=== PATIENT | male | born 1955 | race Caucasian/White ===

== ENCOUNTER 2016-10-14 06:02 | Day surgery (SDC) | payer BC ==
--- NOTE | 2016-10-13 10:57 | HP ---
[facility]ellite [facility] - Chief Complaint Chief Complaint: right knee pain - Past Medical History Allergies/Adverse Reactions: Allergies Allergy/AdvReac Type Severity Reaction Status Date / Time No Known Allergies Allergy Verified 10/06/16 17:39 - Current Medications Current Medications: Medication Instructions Recorded Simvastatin 40 mg PO DAILY 10/06/16 Tamsulosin HCl [Flomax] 0.4 mg PO DAILY 10/06/16 Satellite Physical Exam - Physical Examination General Appearance: Well Nourished, Well Developed, Alert & Oriented x3 ENT: Clear Lung: Normal air movement Heart: Regular rate & rhythm Extremities: Other (right knee- + swelling, + ttp medially, decr rom, nvi xrays show severe medial djd) Neurological: Intact, Alert, Oriented Satellite Impression/Plan - Impression/Plan Impression: right knee medial djd Operative Procedure: right medial jose eduardo ukr Date to be Performed: 10/14/16
[2016-10-14] MEDS ORDERED: CELECOXIB 200 MG CAPSULE PO ONE (06:13)
[2016-10-14] MEDS ORDERED: oxyCODONE HCL 10 MG SUSTAINED ACTING TABLET PO ONE (06:13)
[2016-10-14] MEDS ORDERED: CEFAZOLIN 2 GM in DEXTROSE 5%-WATER - 50 ML IVPB ONE (06:13)
[2016-10-14] MEDS ORDERED: TRANEXAMIC ACID 1000 MG/10 ML VIAL IVPUSH ONE (06:13)
[2016-10-14] MEDS ORDERED: GABAPENTIN 300 MG CAPSULE (FP) PO ONE (06:13)
[2016-10-14] MEDS ORDERED: ROPIVICAINE 0.2%/MORPH PF/KETOROLAC - 51ML DISP.SYRINGE IA ONE ×3 (06:13→09:23)
[2016-10-14] MEDS ORDERED: oxyCODONE HCL 10 MG SUSTAINED ACTING TABLET ONE (06:15)
[2016-10-14] MEDS ORDERED: CELECOXIB 200 MG CAPSULE ONE (06:15)
[2016-10-14] MEDS ORDERED: GABAPENTIN 300 MG CAPSULE (FP) ONE (06:15)
[2016-10-14 06:31] VITALS: BMI 37.4
[2016-10-14] MEDS ORDERED: ROPIVACAINE HCL 0.5% 30ML VIAL ONE (06:45)
[2016-10-14] MEDS ORDERED: DEXAMETHASONE SOD PHOSPHATE/PF 10 MG/ML SDV ONE (06:45)
[2016-10-14] MEDS ORDERED: MIDAZOLAM HCL 2 MG/2 ML SINGLE DOSE VIAL ONE (06:45)
[2016-10-14] MEDS ORDERED: GELATIN, ABSORBABLE 100 EACH SPONGE TP ONE (07:08)
[2016-10-14] MEDS ORDERED: ceFAZolin SODIUM 1 GM VIAL ONE ×2 (07:08→07:37)
[2016-10-14] MEDS ORDERED: THROMBIN (BOVINE) 5,000 UNIT VIAL TP ONE ×2 (07:08→08:40)
[2016-10-14] MEDS ORDERED: PROPOFOL 20 ML ONE ×2 (07:34)
[2016-10-14] MEDS ORDERED: TRANEXAMIC ACID 1000 MG/10 ML VIAL ONE (07:37)
[2016-10-14] MEDS ORDERED: BUPIVACAINE HCL/PF 0.5% (5MG/ML) 10 ML VIAL ONE (07:39)
[2016-10-14] MEDS ORDERED: MAG HYDROX/AL HYDROX/SIMETH 30 ML UNIT-DOSE CUP PO PRN (09:43)
[2016-10-14] MEDS ORDERED: LACTATED RINGERS SOLUTION 1,000 ML IV SCH (09:45)
--- NOTE | 2016-10-14 09:45 | OP ---
Operative Note - Note: Operative Date: 10/14/16 (jennifer) Pre-Operative Diagnosis: right knee medial djd Operation: right medial jose eduardo ukr Post-Operative Diagnosis: Same as Pre-op Surgeon: Larry Nieves Manager Video: Ricardo Stewart) Anesthesiologist/CARGO SUPERVISOR: Asia Florez Anesthesia: Spinal, Local Specimens Removed: bone fragments Estimated Blood Loss (mls): 100 Operative Report Dictated: Yes
[2016-10-14] MEDS ORDERED: PATIENT'S OWN MEDICATION (NON-FORMULARY) (Simvastatin [Simvastatin] 40 MG) PO SCH (10:00)
[2016-10-14] MEDS ORDERED: ACETAMINOPHEN 325 MG TABLET (FP) ONE (11:19)
[2016-10-14] MEDS ORDERED: ACETAMINOPHEN 325 MG TABLET (FP) PO ONE (11:21)
[2016-10-14] MEDS ORDERED: ACETAMINOPHEN 1000 MG/100 ML VIAL (NON FORMULARY) IVPB ONE (11:30)
[2016-10-14] MEDS ORDERED: oxyCODONE HCL 5 MG TABLET PO PRN (11:30)
[2016-10-14] MEDS ORDERED: ONDANSETRON 4 MG/2 ML VIAL IVPB PRN (11:30)
--- NOTE | 2016-10-14 13:58 | SPEC ---
DATE OF OPERATION: 10/14/2016 PREOPERATIVE DIAGNOSIS: Degenerative joint disease, right knee. POSTOPERATIVE DIAGNOSIS: Degenerative joint disease, right knee. PROCEDURE: Right medial unicompartmental knee replacement with robotic-assisted navigation (MAKOplasty) and patelloplasty. SURGICAL ATTENDING: Larry Nieves M.D. STAFF AUDITOR: Ricardo Stewart M.D., and Tamir [place] ANESTHESIA: Spinal and regional. CLOSURE: Medial MAKOplasty components with a 6 femur, 5 tibia, 9 polyethylene, No. 1 Vicryl to fascia, 2-0 subcutaneous and 3-0 Monocryl subcuticular with skin glue for skin, 4-0 undyed Vicryl for pin sites. ESTIMATED BLOOD LOSS: Negligible. TOURNIQUET TIME: 25 minutes. COMPLICATIONS: None. CONDITION: To recovery room in stable condition. DESCRIPTION OF PROCEDURE: Patient was taken to the operating room. Spinal and femoral block anesthesia was administered by the anesthesiologist. IV Kefzol and TXA were administered prophylactically prior to the case. A well-padded pneumatic tourniquet was placed on the right proximal thigh. The right lower extremity was prepped and draped in the usual sterile fashion. A 6 cm longitudinal incision was made along the medial retinaculum from mid patella toward the tibial tubercle. Hemostasis was achieved using Bovie cautery. Sharp dissection was carried down to the level of the capsule, which was opened the entire length of incision. Subperiosteal dissection in the anterior medial proximal tibia. Periosteal elevator was used to facilitate this dissection. Partial fat pad excision was performed to gain visualization. A femoral and tibial checkpoint were malleted into place. Two bicortical pins were drilled through small stab incisions into the femur, 1 handbreadth above the patella. Two bicortical pins were drilled into the tibia 1 handbreadth below the tibial tubercle through small stab incisions as well. To these, pins were attached to clamps and the navigation arrays. The knee was then registered with the navigation device by ascertaining the center of rotation of the hip, both the medial and lateral malleoli, at approximately 50 points on the tibia and femur. Registration was within YOLANDE parameters, being less than half a millimeter. At this time, the medial osteophytes on both the femur and tibia were removed by use of rongeur. The knee was taken through a range of motion and with stressing the medial compartment open at 0, 30, 60, 90 and 120 degrees. Stress points were obtained in order to develop a flexion / extension and a tightness / looseness graph. The robotic navigation device obtained a virtual tracking of the knee and found that the traction was in excellent position. The components were manipulated virtually in order to obtain a flexion/extension; tightness/looseness graph was then +/- 1 mm. The robot was then brought into the field and registered with the navigation device. The robot was then used to leticia the bone on both the femur and the tibia to the specifications and direction of the navigation device. All excess bone, osteophytes, and cartilage were removed, including the medial meniscus. Care was taken to protect the MCL throughout the case. The trial components were then placed into the knee with the appropriate polyethylene plastic trial liner. The knee was taken through a range of motion and the graph on the navigation device was then used again to confirm ideal position of the components and ideal tightness/looseness of the components. The trial components were removed, along with the checkpoints and the array. The knee was exsanguinated with an Esmarch bandage and tourniquet inflated to 175 mmHg. The knee was post-antibiotic irrigated and then dried and then Avitene and Gelfoam were placed to aid in hemostasis. The real components were then cemented in using modern generation cement techniques with antibiotics, cement and pressurization. All excess cement was removed. The knee was thoroughly inspected to remove any excess cement and bone fragments. The real polyethylene component was then clipped into place. Range of motion revealed excellent range of motion and good tensioning throughout. The knee was post-antibiotic irrigated. The fascia was closed using 2-0 Vicryl interrupted suture. The tourniquet was deflated. Total tourniquet time was less than 30 minutes. Hemostasis was obtained. Another dose of TXA was administered. The subcutaneous layer was closed with 2-0 Vicryl, 3-0 Monocryl subcuticular for skin. A pain cocktail was infused throughout the soft tissue. The pin sites were irrigated and closed with 4-0 Vicryl and skin glue was used for all incisions. Sterile Aquacel dressing was placed on all incisions followed by a dressing from the toes to the thigh. Patient was transferred to the recovery room in stable condition. No complications. Tc [id number]
[2016-10-14] MEDS: PANTOPRAZOLE 40 MG TABLET (FP) PO SCH (14:41)
[2016-10-14] MEDS: MULTIVITAMINS (DAILY MVI) TABLET (FP) PO SCH (14:41)
[2016-10-14] MEDS: SENNOSIDES/DOCUSATE COMBO (SENNA PLUS) TABLET (UD) PO SCH ×2 (14:41→22:21)
[2016-10-14] MEDS: CEFAZOLIN 2 GM/D5W 50 ML IVPB SCH ×2 (15:41→23:24)
[2016-10-14] MEDS ORDERED: ACETAMINOPHEN 325 MG TABLET (FP) PO PRN (18:00)
[2016-10-14] MEDS ORDERED: ATORVASTATIN CA 20 MG TABLET (FP) PO SCH (22:00)
[2016-10-14] MEDS: GABAPENTIN 300 MG CAPSULE (FP) PO SCH (22:19)
[2016-10-14] MEDS: oxyCODONE HCL 10 MG SUSTAINED ACTING TABLET PO SCH (22:19)
[2016-10-15] MEDS: oxyCODONE HCL 5 MG TABLET PO PRN ×2 (06:30→11:34)
[2016-10-15 06:38] VITALS: BP 129/71; PULSE 56; TEMP 98
[2016-10-15] MEDS ORDERED: ASPIRIN 325 MG TABLET PO SCH (08:00)
--- NOTE | 2016-10-15 08:18 | PN ---
Progress Note (short form) - Note Progress Note: Ortho Pt seen and examined s/p right medial jose eduardo ukr pod #1 Selected Entries 10/15/16 05:00 Temperature 98.0 F Pulse Rate 56 L Respiratory 19 Rate Blood Pressure 129/71 dressing c/d/i, calf soft nt rom 0-50, nvi a/p PT dvt ppx pain control d/c home today f/u in 1 week
--- NOTE | 2016-10-15 08:19 | DS ---
Physical Examination Vital Signs: Vital Signs Temperature 98.0 F 10/15/16 05:00 Pulse Rate 56 L 10/15/16 05:00 Respiratory Rate 19 10/15/16 05:00 Blood Pressure 129/71 10/15/16 05:00 O2 Sat by Pulse Oximetry (%) 96 10/14/16 22:54 Discharge Summary Reason For Visit: RIGHT KNEE OSTEOARTHRITIS Procedures: Principal: s/p right medial jose eduardo ukr Hospital Course: admitted for elective right medial jose eduardo ukr, uneventful post-op, stable for d/c Condition: Good - Instructions Diet, Activity, Other Instructions: regular diet keep dressing intact, may shower with aquacel in place weight bearing and range of motion as tolerated ice, elevate ankle pumps Aspirin 325 mg daily x 6 weeks compression device at home when not ambulating f/u in the office in 1 week, call for appt: [phone] Referrals: Ricardo Stewart MD [Staff Physician] - Disposition: VNS/HOME HEALTH CARE - Home Medications Comprehensive Discharge Medication List: Ambulatory Orders Simvastatin 40 mg PO DAILY 10/06/16 Tamsulosin HCl [Flomax -] 0.4 mg PO DAILY 10/06/16 Aspirin [ASA -] 325 mg PO DAILY@0800 tablet 10/14/16 Oxycodone HCl/Acetaminophen [Percocet 5-325 mg Tablet -] 1 - 2 tab PO Q6H #50 tab MDD 8 10/14/16
[2016-10-15] MEDS ORDERED: TAMSULOSIN HCL 0.4 MG CAP.ER.24H (FP) PO SCH (08:30)
[2016-10-15] MEDS: MULTIVITAMINS (DAILY MVI) TABLET (FP) PO SCH (09:06)
[2016-10-15] MEDS: PANTOPRAZOLE 40 MG TABLET (FP) PO SCH (09:06)
[2016-10-15] MEDS: GABAPENTIN 300 MG CAPSULE (FP) PO SCH (09:06)
[2016-10-15] MEDS: SENNOSIDES/DOCUSATE COMBO (SENNA PLUS) TABLET (UD) PO SCH (09:06)
[2016-10-15] MEDS: oxyCODONE HCL 10 MG SUSTAINED ACTING TABLET PO SCH (09:07)
== END 2016-10-15 12:20 | disposition home health service (06) ==
LOC: FASU 06:02 → FM/S 12:10 → FASU 10-15 12:20
PROVIDERS: ATTEND Orthopaedic Surgery
PROC: 8E0YXBZ Computer Assisted Procedure of Lower Extremity (ICD-10-PCS; 2016-10-14)
PROC: 8E0Y0CZ Robotic Assisted Procedure of Lower Extremity, Open Approach (ICD-10-PCS; 2016-10-14)
PROC: 0SRC0L9 Replacement of Right Knee Joint with Medial Unicondylar Synthetic Substitute, Cemented, Open Approach (ICD-10-PCS; principal; 2016-10-14 08:00)
DX: M17.11 Unilateral primary osteoarthritis, right knee (principal)
CPT/HCPCS: 20985; 27446; C1776; S2900; 73560-TC-RT; 94010; 94760; 97116-GP; 97162-PG

== ENCOUNTER 2017-06-24 09:26 | Day surgery (SDC) | payer BC ==
[2017-06-24] MEDS: PHENYLEPHRINE 2.5% OPHTH SOLN 15 ML BOTTLE ONE ×3 (10:20→10:30)
[2017-06-24] MEDS: CYCLOPENTOLATE 2% OPHTH SOLN 2 ML BOTTLE ONE ×3 (10:20→10:30)
[2017-06-24] MEDS: TROPICAMIDE 1% OPHTH SOLN 15 ML BOTTLE ONE ×3 (10:20→10:30)
[2017-06-24] MEDS: CIPROFLOXACIN 0.3% EYE DROPS 5 ML BOTTLE ONE ×3 (10:20→10:30)
[2017-06-24 10:25] VITALS: BMI 37.4
[2017-06-24] MEDS ORDERED: MIDAZOLAM HCL 2 MG/2 ML SINGLE DOSE VIAL ONE (11:45)
[2017-06-24 12:48] VITALS: TEMP 98
[2017-06-24 12:49] VITALS: BP 118/65; PULSE 54
== END 2017-06-24 12:51 | disposition home or self-care (01) ==
LOC: FASU 09:26
PROVIDERS: ATTEND Ophthalmology
PROC: 08RK3JZ Replacement of Left Lens with Synthetic Substitute, Percutaneous Approach (ICD-10-PCS; principal; 2017-06-24 11:56)
DX: H26.8 Other specified cataract (principal)

== ENCOUNTER 2017-09-23 06:05 | Day surgery (SDC) | payer BC ==
[2017-09-18 13:51] VITALS: BMI 37.4
[2017-09-23] MEDS ORDERED: PHENYLEPHRINE 2.5% OPHTH SOLN 15 ML BOTTLE ONE (06:23)
[2017-09-23] MEDS ORDERED: TROPICAMIDE 1% OPHTH SOLN 15 ML BOTTLE ONE (06:23)
[2017-09-23] MEDS ORDERED: CYCLOPENTOLATE 2% OPHTH SOLN 2 ML BOTTLE ONE (06:23)
[2017-09-23] MEDS ORDERED: CIPROFLOXACIN 0.3% EYE DROPS 5 ML BOTTLE ONE (06:23)
[2017-09-23] MEDS ORDERED: LIDOCAINE 1% P/F 10 MG/ML VIAL ONE (07:18)
[2017-09-23] MEDS ORDERED: TETRACAINE 0.5% OPHTH SOLN 2 ML BOTTLE ONE ×2 (07:18→07:30)
[2017-09-23] MEDS ORDERED: CARBACHOL 0.01% INTRA-OCULAR 1.5 ML VIAL ONE (07:19)
[2017-09-23] MEDS ORDERED: NEO/POLYMYX B SULF/DEXAMETH OPHTHALMIC 5ML BOTTLE ONE (07:19)
[2017-09-23] MEDS ORDERED: BSS (NA/CA/MG/K) BALANCED SALT SOLUTION OPHTH SOLN 15 ML BOTTLE ONE (07:19)
[2017-09-23] MEDS ORDERED: EPINEPHrine 1:1,000 1 MG/1 ML - 30ML VIAL (INJECTION) ONE (07:30)
[2017-09-23] MEDS ORDERED: MIDAZOLAM HCL 2 MG/2 ML SINGLE DOSE VIAL ONE (07:57)
--- NOTE | 2017-09-23 08:38 | OP ---
DATE OF OPERATION: 09/23/2017 OPERATIVE PROCEDURE: Lens phacoemulsification with posterior chamber intraocular lens placement right eye. PREOPERATIVE DIAGNOSIS: Visually significant cataract of right eye. POSTOPERATIVE DIAGNOSIS: Visually significant cataract of right eye. SURGEON: Bharath Zamora M.D. ANESTHESIA: MAC PROCEDURE: The patient was brought to the operating room and placed under monitored anesthesia care by Anesthesia. A drop of tetracaine was then placed over the right eye. The patient was then prepped and draped in the usual sterile manner. A speculum was then placed over the right eye. The eye was then well irrigated with copious amounts of BSS (balanced salt solution). The operating microscope was then moved into position. A paracentesis was performed using a 15 degree blade. At this point 0.5 mL of 1% preservative-free lidocaine was injected into the anterior chamber. Amvisc Plus was then injected into the anterior chamber. A clear corneal incision was then formed using a 2.2 mm keratome. A capsulorrhexis was then performed in a continuous circular fashion beginning with a cystotome and completed with Utrata forceps. Hydrodissection was then performed using BSS on a cannula. The phaco probe was then introduced through the corneal wound and the cataract was removed using the phaco chop technique. Approximately 3 seconds of absolute phaco time was used. The remaining cortex was then removed using irrigation and aspiration with an I/A probe. The capsule was then filled with regular Amvisc and the capsule was noted to be intact. A previously selected foldable posterior chamber intraocular lens was then injected into the capsule through the corneal wound using a lens injector. It was then dialed into position using a Sinskey hook. The Amvisc was then removed using irrigation and aspiration. Miostat was then injected through the paracentesis to constrict the pupil. The paracentesis and corneal wound were then hydrated and noted to be watertight. A drop of Maxitrol was then placed over the eye. The speculum was removed and clear shield was taped over the eye. The patient tolerated the procedure well and there were no surgical complications. The patient was asked to follow up in my office the next day. BHARATH ZAMOAR M.D. TIARRA/[id number]
[2017-09-23 08:43] VITALS: PULSE 65; TEMP 98.5
[2017-09-23 09:16] VITALS: BP 110/72
== END 2017-09-23 09:00 | disposition home or self-care (01) ==
LOC: FASU 06:05
PROVIDERS: ATTEND Ophthalmology
PROC: 08RJ3JZ Replacement of Right Lens with Synthetic Substitute, Percutaneous Approach (ICD-10-PCS; principal; 2017-09-23 08:09)
DX: H26.8 Other specified cataract (principal)